=== PATIENT | male | born 1990 | race Caucasian/White ===

== ENCOUNTER 2017-10-21 14:22 | Emergency (ER) | payer SELFPAY ==
[~2017-10-21] VITALS: Ht 182.9 cm; Wt 100.0 kg
[2017-10-21 14:47] VITALS: BP 139/90; PULSE 118; RESP 20; TEMP 98; O2SAT 99
[2017-10-21 16:32] LABS: AUTOMATED NEUTROPHIL # 8.2 TH/MM3 (1.8-7.7); BASOPHIL % 0.2 % (0.0-2.0); EOSINOPHIL % 0.1 % (0.0-4.0); HEMATOCRIT 44.8 % (39.0-51.0); LYMPH % 13.2 % (9.0-44.0); LYMPHOCYTE # 1.4 TH/MM3 (1.0-4.8); MEAN CELL VOLUME 96.8 FL (80.0-100.0); MEAN CORPUSCULAR HEMOGLOBIN 34.5 PG (27.0-34.0); MEAN CORPUSCULAR HGB CONC 35.6 % (32.0-36.0); MEAN PLATELET VOLUME 6.9 FL (7.0-11.0); MONO % 9.2 % (0.0-8.0); NEUT % 77.3 % (16.0-70.0); PLATELET COUNT 351 TH/MM3 (150-450); RED BLOOD COUNT 4.63 MIL/MM3 (4.50-5.90); RED CELL DISTRIBUTION WIDTH 12.9 % (11.6-17.2); WHITE BLOOD COUNT 10.6 TH/MM3 (4.0-11.0)
--- NOTE | 2017-10-21 16:43 | PD ---
Data Data Last Documented VS Vital Signs Date Time Temp Pulse Resp B/P (MAP) Pulse Ox O2 Delivery O2 Flow Rate FiO2 10/21/17 14:47 98.0 118 20 139/90 (106) 99 Orders Orders Complete Blood Count With Diff (10/21/17 14:47) Comprehensive Metabolic Panel (10/21/17 14:47) Thyroid Stimulating Hormone (10/21/17 14:47) Psych Screen (10/21/17 14:47) Drug Screen, Random Urine (10/21/17 14:47) Alcohol (Ethanol) (10/21/17 14:47) Salicylates (Aspirin) (10/21/17 14:47) Tylenol (Acetaminophen) (10/21/17 14:47) Labs Laboratory Tests Test 10/21/17 15:50 10/21/17 15:58 White Blood Count 10.6 TH/MM3 Red Blood Count 4.63 MIL/MM3 Hemoglobin 16.0 GM/DL Hematocrit 44.8 % Mean Corpuscular Volume 96.8 FL Mean Corpuscular Hemoglobin 34.5 PG Mean Corpuscular Hemoglobin Concent 35.6 % Red Cell Distribution Width 12.9 % Platelet Count 351 TH/MM3 Mean Platelet Volume 6.9 FL Neutrophils (%) (Auto) 77.3 % Lymphocytes (%) (Auto) 13.2 % Monocytes (%) (Auto) 9.2 % Eosinophils (%) (Auto) 0.1 % Basophils (%) (Auto) 0.2 % Neutrophils # (Auto) 8.2 TH/MM3 Lymphocytes # (Auto) 1.4 TH/MM3 Monocytes # (Auto) 1.0 TH/MM3 Eosinophils # (Auto) 0.0 TH/MM3 Basophils # (Auto) 0.0 TH/MM3 CBC Comment DIFF FINAL Differential Comment MDM Supervised Visit with CARLOS: Yes Narrative Course I, Dr. Lewis, have reviewed the advance practice practitioner's documentation and am in agreement, met with the patient face to face, made the diagnosis, and the medical decision making was done by me. *My assessment and Findings: This patient presents under police Mendoza act. He was found walking down the street completely nude. He has anabaptist preoccupation. A medical screening workup has been ordered. He has normal vital signs. He denies any physical complaint. Disposition will be per psychiatry. Diagnosis Primary Impression: Psychosis Qualified Codes: F29 - Unspecified psychosis not due to a substance or known physiological condition Ubaldo Lewis MD Oct 21, 2017 16:43
[2017-10-21 17:00] VITALS: PULSE 104; RESP 16; O2SAT 99
[2017-10-21 17:16] LABS: ACETAMINOPHEN LESS THAN 2.0 MCG/ML (10.0-30.0); ALBUMIN 4.4 GM/DL (3.4-5.0); ALKALINE PHOSPHATASE 50 U/L (45-117); ALT (GPT) 29 U/L (12-78); AST (GOT) 34 U/L (15-37); BLOOD UREA NITROGEN 10 MG/DL (7-18); CALCIUM 9.4 MG/DL (8.5-10.1); CHLORIDE 108 MEQ/L (98-107); CREATININE 0.87 MG/DL (0.60-1.30); GLOMERULAR FILTRATION RATE 105 ML/MIN (>89); GLUCOSE,RANDOM 81 MG/DL (74-106); SODIUM (NA) 142 MEQ/L (136-145); TOTAL BILIRUBIN ADULT 0.5 MG/DL (0.2-1.0); TOTAL PROTEIN 7.8 GM/DL (6.4-8.2)
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
[2017-10-21 19:27] VITALS: BP 127/75; PULSE 89; RESP 18; O2SAT 99
[2017-10-22 02:39] VITALS: BP 112/56; PULSE 57; RESP 18; O2SAT 97
[2017-10-22 08:00] VITALS: BP 115/61; PULSE 62; RESP 17; TEMP 98.5; O2SAT 98
[2017-10-22 12:00] VITALS: BP 113/64; PULSE 66; RESP 15; TEMP 98.1; O2SAT 99
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
--- NOTE | 2017-10-22 16:07 | PD ---
Physical Exam Time Seen by Provider: 15:56 ANN Guthrie has evaluated the patient, his lifted the Mendoza act and cleared the patient for discharge. Data Data Last Documented VS Vital Signs Date Time Temp Pulse Resp B/P (MAP) Pulse Ox O2 Delivery O2 Flow Rate FiO2 10/22/17 12:00 98.1 66 15 113/64 (80) 99 Room Air Orders Orders Complete Blood Count With Diff (10/21/17 14:47) Comprehensive Metabolic Panel (10/21/17 14:47) Thyroid Stimulating Hormone (10/21/17 14:47) Psych Screen (10/21/17 14:47) Drug Screen, Random Urine (10/21/17 14:47) Alcohol (Ethanol) (10/21/17 14:47) Salicylates (Aspirin) (10/21/17 14:47) Tylenol (Acetaminophen) (10/21/17 14:47) Diet Regular Basic (10/22/17 Breakfast) Labs Laboratory Tests Test 10/21/17 15:50 10/21/17 15:58 White Blood Count 10.6 TH/MM3 Red Blood Count 4.63 MIL/MM3 Hemoglobin 16.0 GM/DL Hematocrit 44.8 % Mean Corpuscular Volume 96.8 FL Mean Corpuscular Hemoglobin 34.5 PG Mean Corpuscular Hemoglobin Concent 35.6 % Red Cell Distribution Width 12.9 % Platelet Count 351 TH/MM3 Mean Platelet Volume 6.9 FL Neutrophils (%) (Auto) 77.3 % Lymphocytes (%) (Auto) 13.2 % Monocytes (%) (Auto) 9.2 % Eosinophils (%) (Auto) 0.1 % Basophils (%) (Auto) 0.2 % Neutrophils # (Auto) 8.2 TH/MM3 Lymphocytes # (Auto) 1.4 TH/MM3 Monocytes # (Auto) 1.0 TH/MM3 Eosinophils # (Auto) 0.0 TH/MM3 Basophils # (Auto) 0.0 TH/MM3 CBC Comment DIFF FINAL Differential Comment Blood Urea Nitrogen 10 MG/DL Creatinine 0.87 MG/DL Random Glucose 81 MG/DL Total Protein 7.8 GM/DL Albumin 4.4 GM/DL Calcium Level 9.4 MG/DL Alkaline Phosphatase 50 U/L Aspartate Amino Transf (AST/SGOT) 34 U/L Alanine Aminotransferase (ALT/SGPT) 29 U/L Total Bilirubin 0.5 MG/DL Sodium Level 142 MEQ/L Potassium Level 3.4 MEQ/L Chloride Level 108 MEQ/L Carbon Dioxide Level 22.0 MEQ/L Anion Gap 12 MEQ/L Estimat Glomerular Filtration Rate 105 ML/MIN Thyroid Stimulating Hormone 3rd Gen 0.669 uIU/ML Salicylates Level LESS THAN 1.7 MG/DL Acetaminophen Level LESS THAN 2.0 MCG/ML Ethyl Alcohol Level LESS THAN 3 MG/DL Urine Opiates Screen NEG Urine Barbiturates Screen NEG Urine Amphetamines Screen NEG Urine Benzodiazepines Screen NEG Urine Cocaine Screen NEG Urine Cannabinoids Screen POS MDM Supervised Visit with CARLOS: No Narrative Course ANN Leos has evaluated the patient, his lifted the Mendoza act and cleared the patient for discharge. Patient contracts safety. Denies suicidal or homicidal ideations. Patient will be provided community resource packet to [facility]/ [facility] for follow-up. Has friends and family for support. Patient was medically cleared by alternate provider prior to psych screening. Patient has been evaluated by psychiatry and and is now cleared for discharge. Diagnosis Primary Impression: Psychosis Qualified Codes: F29 - Unspecified psychosis not due to a substance or known physiological condition Referrals: [facility] (Out patient) [facility] Primary Care Physician Psychiatrist [facility] Patient Instructions: General Instructions, Schizophrenia (ED) Additional Instruction: Contract safety to your self and others Follow-up with psychiatry Follow-up with primary care provider Follow-up with Fidenico Espinoza Return to the emergency department immediately with worsening of symptoms Med/Other Pt SpecificInfo: No Change to Meds, No Meds Exist/No RX given Disposition: 01 DISCHARGE HOME Condition: Stable Kenzie Murphy Oct 22, 2017 16:07
[2017-10-22 16:12] VITALS: BP 115/67
== END 2017-10-22 16:12 | disposition home or self-care (01) ==
LOC: NEPD 14:22
DX: F29 Unspecified psychosis not due to a substance or known physiological condition (principal); F12.10 Cannabis abuse, uncomplicated; F20.9 Schizophrenia, unspecified; F17.210 Nicotine dependence, cigarettes, uncomplicated; Z91.14 Patient's other noncompliance with medication regimen
CPT/HCPCS: 80053; 80307; 84443; 85025; 99284

== ENCOUNTER 2017-11-21 19:02 | Inpatient (IN) | payer OTHER ==
[~2017-11-21] VITALS: Ht 177.8 cm; Wt 112.2 kg
[2017-11-21 19:30] VITALS: BP 126/62; PULSE 134; RESP 16; TEMP 98.4; O2SAT 93
[2017-11-21] MEDS ORDERED: TRAZ100T10 PO (19:34)
[2017-11-21] MEDS ORDERED: ARIP2 PO (19:34)
[2017-11-21] MEDS ORDERED: SODIUM CHLOR 0.9% 1000 ML INJ 1,000 ML IV ONE (19:45)
[2017-11-21] MEDS ORDERED: DIPHTH/TETANUS/ACEL PERTUSSIS (BOOSTER) 0.5 ML VIAL/PFS IM ONE (19:45)
--- NOTE | 2017-11-21 19:56 | PD ---
HPI Chief Complaint: Psychiatric Symptoms Time Seen by Provider: 19:16 Travel History International Travel<30 days: No Contact w/Intl Traveler<30days: No Traveled to known affect area: No History of Present Illness HPI 27-year-old male that presents to the ED for evaluation of Mendoza act. Patient was Mendoza acted by police after apparently he was found to be naked and stating that the gravity of the ER was pulling him to the ground. Patient has abrasions to his feet and knees bilaterally. Patient has an abrasion to his abdomen. He denies any his head or losing consciousness. Denies any drugs or alcohol. He allegedly has a significant history of psychiatric issues including schizophrenia. Patient has been here once before. Unclear patient takes any medications. Patient himself is a poor historian appears to be slightly psychotic and delusional. He denies any suicidal homicidal ideation. He cannot tell me when his last tetanus booster was. He states having pain to his legs and knees. No other medical issues at this time. History is limited because of the patient's psychiatric illness. No other medical issues at this time. PFSH Past Medical History Hx Anticoagulant Therapy: No Cardiovascular Problems: Yes (TACHYCARDIA) Chemotherapy: No Cerebrovascular Accident: No Diabetes: No Respiratory: No Schizophrenia: Yes Tetanus Vaccination: Unknown Social History Alcohol Use: No Tobacco Use: No Substance Use: Yes (MARIJUANA. DENIES CURRENT USE) Allergies-Medications (Allergen,Severity, Reaction): Coded Allergies: alprazolam (Verified Allergy, Unknown, 11/21/17) diphenhydramine (Verified Allergy, Unknown, 11/21/17) Reported Meds & Prescriptions Reported Meds & Active Scripts Active Reported Trazodone (Trazodone HCl) 100 Mg Tablet 100 Mg PO HS Abilify (Aripiprazole) 2 Mg Tab 5 Mg PO DAILY Review of Systems ROS Limitations: Psychotic Except as stated in HPI: all other systems reviewed are Neg Physical Exam Exam Limitations: Psychotic Narrative GENERAL: SKIN: Warm and dry. HEAD: Atraumatic. Normocephalic. EYES: Pupils equal and round. No scleral icterus. No injection or drainage. ENT: No nasal bleeding or discharge. Mucous membranes pink and moist. Tongue is midline. No uvula deviation. NECK: Trachea midline. No JVD. CARDIOVASCULAR: Regular rate and rhythm. No murmurs, S3, S4. RESPIRATORY: No accessory muscle use. Clear to auscultation. Breath sounds equal bilaterally. GASTROINTESTINAL: Abdomen soft, non-tender, nondistended. Hepatic and splenic margins not palpable. MUSCULOSKELETAL: Extremities without clubbing, cyanosis, or edema. No obvious deformities. Full range of motion of the upper and lower extremities bilaterally. 2+ pulses bilaterally. Patient has multiple abrasions to the dorsal aspect of the feet bilaterally as well as the knees bilaterally as well as the right abdomen. Sensation intact bilaterally. No lumbar, thoracic, cervical spine tenderness to palpation. NEUROLOGICAL: Awake and alert. No obvious cranial nerve deficits. Motor grossly within normal limits. Five out of 5 muscle strength in the arms and legs. Normal speech. PSYCHIATRIC: A psychotic mood and affect; insight and judgment minimal Data Data Last Documented VS Vital Signs Date Time Temp Pulse Resp B/P (MAP) Pulse Ox O2 Delivery O2 Flow Rate FiO2 11/21/17 19:30 98.4 134 16 126/62 (83) 93 Orders Orders Complete Blood Count With Diff (11/21/17 19:14) Comprehensive Metabolic Panel (11/21/17 19:14) Thyroid Stimulating Hormone (11/21/17 19:14) Psych Screen (11/21/17 19:14) Drug Screen, Random Urine (11/21/17 19:14) Alcohol (Ethanol) (11/21/17 19:14) Salicylates (Aspirin) (11/21/17 19:14) Tylenol (Acetaminophen) (11/21/17 19:14) Sodium Chlor 0.9% 1000 Ml Inj (Ns 1000 M (11/21/17 19:45) [id number] (Booster) Inj (Boostrix (11/21/17 19:45) Wound Care (11/21/17 19:33) MDM Medical Decision Making Medical Screen Exam Complete: Yes Emergency Medical Condition: Yes Medical Record Reviewed: Yes Differential Diagnosis Depression versus suicidal ideation versus anxiety versus adjustment disorder versus mood disorder versus bipolar disorder versus schizophrenia versus paranoid disorder versus psychosis versus substance abuse versus alcohol abuse versus alcohol induced psychosis versus homicidality addition versus cutting versus personality disorder Narrative Course 27-year-old male that presents to the ED for evaluation of psych. Patient was properly examined and was found to have signs and symptoms consistent appears to be psychiatric in nature. No significant medical distress. Labs were drawn. Patient was medically clear. Wound care was endorsed. Patient was given tetanus booster. Patient was found to be slightly tachycardic in the 140s 120s. This appears to be likely from the hydration as patient does appear to be dry states that he has not eaten or drinking anything today likely from his psychosis. He will given IV fluids and if his heart rate improves patient can be moved to psychiatric bed. Mental health screening was discussed with the patient. Diagnosis Primary Impression: Psychosis Qualified Codes: F23 - Brief psychotic disorder Additional Impression: Multiple abrasions Sanjay Franco November 21, 2017 19:56
[2017-11-21 20:18] LABS: AUTOMATED NEUTROPHIL # 12.6 TH/MM3 (1.8-7.7); BASOPHIL % 0.2 % (0.0-2.0); HEMATOCRIT 44.4 % (39.0-51.0); HEMOGLOBIN 15.7 GM/DL (13.0-17.0); LYMPH % 4.7 % (9.0-44.0); LYMPHOCYTE # 0.7 TH/MM3 (1.0-4.8); MEAN CELL VOLUME 96.4 FL (80.0-100.0); MEAN CORPUSCULAR HGB CONC 35.3 % (32.0-36.0); MEAN PLATELET VOLUME 7.2 FL (7.0-11.0); MONO % 6.3 % (0.0-8.0); MONOCYTE # 0.9 TH/MM3 (0-0.9); NEUT % 88.8 % (16.0-70.0); PLATELET COUNT 404 TH/MM3 (150-450); WHITE BLOOD COUNT 14.2 TH/MM3 (4.0-11.0)
[2017-11-21 20:36] LABS: ALBUMIN 4.4 GM/DL (3.4-5.0); ALT (GPT) 27 U/L (12-78); AST (GOT) 17 U/L (15-37); BLOOD UREA NITROGEN 7 MG/DL (7-18); CHLORIDE 113 MEQ/L (98-107); CREATININE 1.24 MG/DL (0.60-1.30); GLOMERULAR FILTRATION RATE 69 ML/MIN (>89); GLUCOSE,RANDOM 95 MG/DL (74-106); SODIUM (NA) 146 MEQ/L (136-145)
[2017-11-21 20:45] LABS: ALKALINE PHOSPHATASE 51 U/L (45-117); TOTAL BILIRUBIN ADULT 0.6 MG/DL (0.2-1.0); TOTAL PROTEIN 7.7 GM/DL (6.4-8.2)
[2017-11-21 20:46] LABS: ACETAMINOPHEN LESS THAN 2.0 MCG/ML (10.0-30.0)
[2017-11-21 22:22] VITALS: BP 130/72; PULSE 90; RESP 18
[2017-11-21 23:20] VITALS: BP 112/64; PULSE 94; RESP 16; TEMP 97.9; O2SAT 97
[2017-11-21] MEDS ORDERED: MAGNESIUM HYDROXIDE SUSP 30 ML CUP PO PRN (23:45)
[2017-11-21] MEDS ORDERED: ALUMINUM/MAGNESIUM/SIMETH 30 ML CUP PO PRN (23:45)
[2017-11-22] MEDS: ACETAMINOPHEN 325 MG TAB PO PRN ×2 (02:30→20:39)
[2017-11-22 06:17] VITALS: BP 121/64; PULSE 85; RESP 18; TEMP 98.1; O2SAT 98
[2017-11-22 10:59] LABS: BICARBONATE 26.1 MEQ/L (21.0-32.0); BLOOD UREA NITROGEN 7 MG/DL (7-18); CALCIUM 9.3 MG/DL (8.5-10.1); CHLORIDE 110 MEQ/L (98-107); CREATININE 0.96 MG/DL (0.60-1.30); GLOMERULAR FILTRATION RATE 93 ML/MIN (>89); GLUCOSE,RANDOM 103 MG/DL (74-106); SODIUM (NA) 144 MEQ/L (136-145)
[2017-11-22] MEDS ORDERED: diphenhydrAMINE HCL 50 MG CAP PO PRN (11:00)
[2017-11-22] MEDS ORDERED: ARIPiprazole 5 MG TAB PO SCH (11:00)
[2017-11-22 11:05] LABS: CHOLESTEROL 130 MG/DL (120-200); CHOLESTEROL/ HDL RATIO 3.65 RATIO; HDL CHOLESTEROL 35.6 MG/DL (40.0-60.0); LDL CHOLESTEROL 78 MG/DL (0-99); TRIGLYCERIDES 81 MG/DL (42-150)
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
[2017-11-22] MEDS ORDERED: TRAZ100T10 PO (11:45)
[2017-11-22] MEDS ORDERED: ARIP1TAB11 PO (11:45)
[2017-11-22 18:03] VITALS: BP 127/56; PULSE 81; RESP 17; TEMP 98.3; O2SAT 96
[2017-11-22] MEDS: ARIPiprazole 10 MG TAB PO SCH (20:38)
[2017-11-22] MEDS: traZODone HCL 100 MG TAB PO SCH (20:38)
[2017-11-22] MEDS: hydrOXYzine HCL 50 MG TAB PO PRN (23:12)
[2017-11-23] MEDS: ACETAMINOPHEN 325 MG TAB PO PRN ×3 (03:30→22:40)
[2017-11-23 05:45] VITALS: BP 135/79; PULSE 86; RESP 18; TEMP 98.6; O2SAT 97
[2017-11-23] MEDS: ARIPiprazole 10 MG TAB PO SCH ×2 (09:00→21:26)
[2017-11-23] MEDS: hydrOXYzine HCL 50 MG TAB PO PRN ×2 (10:45→20:41)
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
--- NOTE | 2017-11-23 13:26 | HHI.PYPN ---
Subjective Remarks Patient seen and hold snf, chart reviewed, patient complaint medications, patient discussed with nurse. Patient was noted to be doing some pushing with the Bible in the day room took redirection without problems. Acknowledges continued auditory hallucinations was somewhat command threatening nature. As if there were thought insertion. Patient compliant with medications. Denies suicidality at the present time. For now continue treatment Review of Systems Except as stated in HPI: all other systems reviewed are Neg Mental Status Examination Appearance: Appropriate Consciousness: Alert Orientation: x4 Motor Activity: Normal gait Speech: Unremarkable, Pressured (Slightly), Rapid (Slightly) Language: Adequate Fund of Knowledge: Adequate Attention and Concentration: Adequate Memory: Unremarkable Mood: Other (Euthymic to mildly dysphoric) Affect: Other (Slight increased range and intensity) Thought Process & Associations: Loose associations (Mildly), Disorganized ( Mildly) Thought Content: Hallucinations, Other (Paranoid) Hallucination Type: Auditory Delusion Type: Paranoid Suicidal Ideation: No Suicidal Plan: No Suicidal Intention: No Homicidal Ideation: No Homicidal Plan: No Homicidal Intention: No Insight: Poor Judgment: Poor Results Vitals/IOs Vital Signs Date Time Temp Pulse Resp B/P (MAP) Pulse Ox O2 Delivery O2 Flow Rate FiO2 11/23/17 05:45 98.6 86 18 135/79 (97) 97 Assessment & Plan Problem List: (1) History of multiple drug abuse (2) Marijuana abuse ICD Codes: F12.10 - Cannabis abuse, uncomplicated (3) Paranoid type schizophrenia, chronic state ICD Codes: F20.0 - Paranoid schizophrenia Assessment & Plan Estimated LOS: days patient continues psychotic with auditory hallucinations of a command nature, but continues somewhat vigilance, for now continue treatment Justification for Cont. Inpt. At this time patient would decompensate place to the lower level of care Discharge Planning Probable return home with family perhaps sober living facility Request HC Surrog/Guard Advoc?: No Sukhjinder Stern MD November 23, 2017 13:26
[2017-11-23 16:47] VITALS: BP 134/78; PULSE 81; RESP 18; TEMP 98.2; O2SAT 99
[2017-11-23] MEDS: traZODone HCL 100 MG TAB PO SCH (21:26)
[2017-11-24] MEDS: hydrOXYzine HCL 50 MG TAB PO PRN (03:15)
[2017-11-24 05:48] VITALS: BP 116/65; PULSE 91; RESP 18; TEMP 98.1; O2SAT 98
--- NOTE | 2017-11-24 08:03 | HHI.PYPN ---
Subjective Remarks Patient is seen in follow-up nurse Janel, chart review, patient complaint medications, patient discussed with nurse. When asked about abrasions on the dorsum of both feet patient stated that there were people or spirits were doing bad things to him causing these abrasions that because he believes in Brennan that it will be-year-old. Patient otherwise has no behavioral problems, compliant medications. We will increase Abilify to 15 mg twice daily Review of Systems Except as stated in HPI: all other systems reviewed are Neg Mental Status Examination Appearance: Appropriate Consciousness: Alert Orientation: x4 Motor Activity: Normal gait Speech: Unremarkable, Pressured (Slightly), Rapid (Slightly) Language: Adequate Fund of Knowledge: Adequate Attention and Concentration: Adequate Memory: Unremarkable Mood: Other (Euthymic to mildly dysphoric) Affect: Other (Slight increased range and intensity) Thought Process & Associations: Loose associations (Mildly), Disorganized ( Mildly) Thought Content: Hallucinations, Other (Paranoid) Hallucination Type: Auditory Delusion Type: Paranoid Suicidal Ideation: No Suicidal Plan: No Suicidal Intention: No Homicidal Ideation: No Homicidal Plan: No Homicidal Intention: No Insight: Poor Judgment: Poor Results Vitals/IOs Vital Signs Date Time Temp Pulse Resp B/P (MAP) Pulse Ox O2 Delivery O2 Flow Rate FiO2 11/24/17 05:48 98.1 91 18 116/65 (82) 98 Assessment & Plan Problem List: (1) History of multiple drug abuse (2) Marijuana abuse ICD Codes: F12.10 - Cannabis abuse, uncomplicated (3) Paranoid type schizophrenia, chronic state ICD Codes: F20.0 - Paranoid schizophrenia Assessment & Plan Estimated LOS: days patient continues psychotic and delusional, she medication adjustment above Justification for Cont. Inpt. At the present time the patient would decompensate a place to a lower level of care Discharge Planning Probable return home Request HC Surrog/Guard Advoc?: No Sukhjinder Stern MD November 24, 2017 08:03
[2017-11-24] MEDS: ARIPiprazole 15 MG TAB PO SCH ×2 (08:55→21:03)
[2017-11-24] MEDS: ACETAMINOPHEN 325 MG TAB PO PRN ×3 (10:31→19:31)
[2017-11-24] MEDS: BACITRACIN TOP OINT 15 GM TUBE TOPICAL SCH ×2 (10:31→21:04)
[2017-11-24 16:35] VITALS: BP 133/76; PULSE 84; RESP 16; TEMP 97.8; O2SAT 99
[2017-11-24] MEDS: traZODone HCL 100 MG TAB PO SCH (21:00)
[2017-11-25] MEDS: hydrOXYzine HCL 50 MG TAB PO PRN (03:42)
[2017-11-25 06:10] VITALS: BP 128/73; PULSE 99; RESP 18; TEMP 98.6; O2SAT 99
[2017-11-25] MEDS: ARIPiprazole 15 MG TAB PO SCH ×2 (08:35→21:15)
[2017-11-25] MEDS: BACITRACIN TOP OINT 15 GM TUBE TOPICAL SCH ×2 (09:00→21:16)
[2017-11-25 09:38] LABS: ALBUMIN 4.3 GM/DL (3.4-5.0); AST (GOT) 26 U/L (15-37); BICARBONATE 24.4 MEQ/L (21.0-32.0); BLOOD UREA NITROGEN 8 MG/DL (7-18); CALCIUM 9.7 MG/DL (8.5-10.1); CHLORIDE 105 MEQ/L (98-107); CREATININE 0.82 MG/DL (0.60-1.30); GLOMERULAR FILTRATION RATE 112 ML/MIN (>89); GLUCOSE,RANDOM 100 MG/DL (74-106); SODIUM (NA) 140 MEQ/L (136-145)
[2017-11-25 09:39] LABS: ALT (GPT) 44 U/L (12-78)
[2017-11-25 09:41] LABS: ALKALINE PHOSPHATASE 72 U/L (45-117); TOTAL BILIRUBIN ADULT 0.5 MG/DL (0.2-1.0); TOTAL PROTEIN 8.2 GM/DL (6.4-8.2)
--- NOTE | 2017-11-25 11:25 | HHI.PYPN ---
Subjective Remarks Patient was seen and case discussed with nursing. Patient remains psychotic. He says that someone else's thoughts are in his head but does not describe these as auditory hallucinations. Denies they are command in nature. Continues to believe that he is involved Satanists. Compliant with medications and behaving well on the unit. Mental Status Examination Appearance: Appropriate Consciousness: Alert Orientation: x4 Motor Activity: Normal gait Speech: Unremarkable, Pressured (Slightly), Rapid (Slightly) Language: Adequate Fund of Knowledge: Adequate Attention and Concentration: Adequate Memory: Unremarkable Mood: Other (Euthymic to mildly dysphoric) Affect: Other (Slight increased range and intensity) Thought Process & Associations: Circumstantial Thought Content: Hallucinations, Other (Paranoid) Hallucination Type: Auditory (His own thoughts) Delusion Type: Paranoid (Satanists) Suicidal Ideation: No Suicidal Plan: No Suicidal Intention: No Homicidal Ideation: No Homicidal Plan: No Homicidal Intention: No Insight: Poor Judgment: Poor Results Labs Test 11/25/17 08:20 Blood Urea Nitrogen 8 MG/DL Creatinine 0.82 MG/DL Random Glucose 100 MG/DL Total Protein 8.2 GM/DL Albumin 4.3 GM/DL Calcium Level 9.7 MG/DL Alkaline Phosphatase 72 U/L Aspartate Amino Transf (AST/SGOT) 26 U/L Alanine Aminotransferase (ALT/SGPT) 44 U/L Total Bilirubin 0.5 MG/DL Sodium Level 140 MEQ/L Potassium Level 3.8 MEQ/L Chloride Level 105 MEQ/L Carbon Dioxide Level 24.4 MEQ/L Anion Gap 11 MEQ/L Estimat Glomerular Filtration Rate 112 ML/MIN Vitals/IOs Vital Signs Date Time Temp Pulse Resp B/P (MAP) Pulse Ox O2 Delivery O2 Flow Rate FiO2 11/25/17 06:10 98.6 99 18 128/73 (91) 99 Assessment & Plan Problem List: (1) Paranoid type schizophrenia, chronic state ICD Codes: F20.0 - Paranoid schizophrenia (2) History of multiple drug abuse (3) Marijuana abuse ICD Codes: F12.10 - Cannabis abuse, uncomplicated Assessment & Plan Continue current treatment plan Justification for Cont. Inpt. Patient would decompensate in a less restrictive setting Request HC Surrog/Guard Advoc?: No Jorge Lemus DO November 25, 2017 11:25
[2017-11-25 16:53] VITALS: BP 133/76; PULSE 101; RESP 18; TEMP 97.8; O2SAT 99
[2017-11-25] MEDS: traZODone HCL 100 MG TAB PO SCH (21:15)
[2017-11-26 06:07] VITALS: BP 134/74; PULSE 82; RESP 16; TEMP 97.5; O2SAT 98
[2017-11-26] MEDS: BACITRACIN TOP OINT 15 GM TUBE TOPICAL SCH ×2 (08:59→21:17)
[2017-11-26] MEDS: ARIPiprazole 15 MG TAB PO SCH ×2 (08:59→21:15)
--- NOTE | 2017-11-26 11:25 | HHI.PYPN ---
Subjective Remarks Patient was seen and case discussed with nursing. Sleep has improved with trazodone and is now between 6-8 hours. However, patient says he still tired and is trying to catch up on his sleep during the day. He was laying on the floor when we walked into the interview. Today he denies auditory hallucinations. No bizarre behavior noted. Compliant with medications. Behaving well on the unit. Does not mention any satanists today Mental Status Examination Appearance: Appropriate Consciousness: Alert Orientation: x4 Motor Activity: Normal gait Speech: Unremarkable, Pressured (Slightly), Rapid (Slightly) Language: Adequate Fund of Knowledge: Adequate Attention and Concentration: Adequate Memory: Unremarkable Mood: Other (Euthymic to mildly dysphoric) Affect: Other (Slight increased range and intensity) Thought Process & Associations: Circumstantial Hallucination Type: None Delusion Type: None Suicidal Ideation: No Suicidal Plan: No Suicidal Intention: No Homicidal Ideation: No Homicidal Plan: No Homicidal Intention: No Insight: Poor Judgment: Poor Results Vitals/IOs Vital Signs Date Time Temp Pulse Resp B/P (MAP) Pulse Ox O2 Delivery O2 Flow Rate FiO2 11/26/17 06:07 97.5 82 16 134/74 (94) 98 Assessment & Plan Problem List: (1) Paranoid type schizophrenia, chronic state ICD Codes: F20.0 - Paranoid schizophrenia (2) History of multiple drug abuse (3) Marijuana abuse ICD Codes: F12.10 - Cannabis abuse, uncomplicated Assessment & Plan Continue current treatment plan Justification for Cont. Inpt. Patient would decompensate in a less restrictive setting Request HC Surrog/Guard Advoc?: No Jorge Lemus DO November 26, 2017 11:25
[2017-11-26] MEDS: hydrOXYzine HCL 50 MG TAB PO PRN ×2 (12:43→12:53)
[2017-11-26 17:42] VITALS: BP 151/78; PULSE 98; RESP 18; TEMP 98; O2SAT 97
[2017-11-26] MEDS: traZODone HCL 100 MG TAB PO SCH (21:15)
[2017-11-27 06:24] VITALS: BP 118/69; PULSE 67; RESP 17; TEMP 97.6; O2SAT 98
[2017-11-27] MEDS: BACITRACIN TOP OINT 15 GM TUBE TOPICAL SCH ×2 (08:22→20:49)
[2017-11-27] MEDS: ARIPiprazole 15 MG TAB PO SCH ×2 (08:22→20:48)
[2017-11-27] MEDS: ZIPRASIDONE HCL 20 MG CAP PO STA ×2 (15:32→17:17)
--- NOTE | 2017-11-27 15:32 | HHI.PYPN ---
Subjective Remarks Patient seen in his room with nurse Janel and counselor Catrachita, patient is somewhat agitated and irritable grandiose and delusional focusing somewhat on distrust of his family of origin. While he is not quite identifying them as impostors he does question their identity and the motivation for relating to him. We did discuss medications, patient feels the Abilify is not helping him with these feelings. He has tried Seroquel Resporal the Abilify in the past. He is willing to try an alternative medication. We will start him on Geodon 20 mg twice daily giving him 1 dose now and later this afternoon, we will consolidate the Abilify to 15 mg at bedtime and is really transitioning the medication. Patient continues somewhat vague about auditory hallucinations he is willing to work with these medication adjustments Review of Systems Except as stated in HPI: all other systems reviewed are Neg Mental Status Examination Appearance: Appropriate Consciousness: Alert Orientation: x4 Motor Activity: Normal gait Speech: Unremarkable, Pressured (Slightly), Rapid (Slightly) Language: Adequate Fund of Knowledge: Adequate Attention and Concentration: Adequate Memory: Unremarkable Mood: Other (Euthymic to mildly dysphoric) Affect: Other (Slight increased range and intensity) Thought Process & Associations: Circumstantial Hallucination Type: None Delusion Type: None Suicidal Ideation: No Suicidal Plan: No Suicidal Intention: No Homicidal Ideation: No Homicidal Plan: No Homicidal Intention: No Insight: Poor Judgment: Poor Results Vitals/IOs Vital Signs Date Time Temp Pulse Resp B/P (MAP) Pulse Ox O2 Delivery O2 Flow Rate FiO2 11/27/17 06:24 97.6 67 17 118/69 (85) 98 Assessment & Plan Problem List: (1) Paranoid type schizophrenia, chronic state ICD Codes: F20.0 - Paranoid schizophrenia (2) History of multiple drug abuse (3) Marijuana abuse ICD Codes: F12.10 - Cannabis abuse, uncomplicated Assessment & Plan Estimated LOS: days patient continues psychotic and delusional, with some increased affect and irritability related to this. She medication adjustments above Justification for Cont. Inpt. At this time patient would decompensate a place to the lower level of care Discharge Planning Possible return home with family Request HC Surrog/Guard Advoc?: No Sukhjinder Stern MD November 27, 2017 15:32
--- NOTE | 2017-11-27 15:55 | PD.TTN ---
Patient Problems 1. Discharge planning 2. Medication compliance 3. Knowledge deficit 4. Lack of coping skills Progress Toward Goals Provider Present: Dr. Marko Stern Provider Input: 11/27/17 remains psychotic Nurse(s) Input: Elke: med compliant, uncooperative, not participating in groups , superficially cooperativeand suspicious Psychiatric Counselors Present: Catrachita Cheung LCSW Psych Therapist Input: 11/27/17 remains with ruminating thoughts , unstable, watchful and anxious and pacing Group Spec/RT/OT/RAMIREZ Present: Dipak Saez OT Group Spec/RT/OT/RAMIREZ Input: 11/27/17 attends some groups Catrachita Cheung LCSW November 27, 2017 15:55
[2017-11-27] MEDS: ZIPRASIDONE HCL 20 MG CAP PO SCH (17:17)
[2017-11-27 17:24] VITALS: BP 125/70; PULSE 71; RESP 16; TEMP 97.6; O2SAT 99
[2017-11-27] MEDS: traZODone HCL 100 MG TAB PO SCH (20:48)
[2017-11-28 05:50] VITALS: BP 139/60; PULSE 75; RESP 14; TEMP 97.7
[2017-11-28] MEDS: ZIPRASIDONE HCL 20 MG CAP PO SCH ×2 (08:25→16:49)
[2017-11-28] MEDS: BACITRACIN TOP OINT 15 GM TUBE TOPICAL SCH ×2 (08:26→21:00)
--- NOTE | 2017-11-28 09:44 | HHI.PYPN ---
Subjective Remarks Patient seen in the [facility] with nurse Islas, chart reviewed, patient compliant medication. Patient discussed with nurse. Patient tolerating initial doses of Geodon without difficulty. Says he feels somewhat better. Though this may just be a honeymoon-type effects. He denies any voices at the present time. He has not been focused on spirituality type ideas as the past 1-2 days. For now continue treatment no change Review of Systems Except as stated in HPI: all other systems reviewed are Neg Mental Status Examination Appearance: Appropriate Consciousness: Alert Orientation: x4 Motor Activity: Normal gait Speech: Unremarkable, Pressured (Slightly), Rapid (Slightly) Language: Adequate Fund of Knowledge: Adequate Attention and Concentration: Adequate Memory: Unremarkable Mood: Other (Euthymic to mildly dysphoric) Affect: Other (Slight increased range and intensity) Thought Process & Associations: Circumstantial Hallucination Type: None Delusion Type: None Suicidal Ideation: No Suicidal Plan: No Suicidal Intention: No Homicidal Ideation: No Homicidal Plan: No Homicidal Intention: No Insight: Poor Judgment: Poor Results Vitals/IOs Vital Signs Date Time Temp Pulse Resp B/P (MAP) Pulse Ox O2 Delivery O2 Flow Rate FiO2 11/28/17 05:50 97.7 75 14 139/60 (86) 11/27/17 17:24 99 Assessment & Plan Problem List: (1) Paranoid type schizophrenia, chronic state ICD Codes: F20.0 - Paranoid schizophrenia (2) History of multiple drug abuse (3) Marijuana abuse ICD Codes: F12.10 - Cannabis abuse, uncomplicated Assessment & Plan Estimated LOS: days patient continues psychotic with a somewhat softer, complaint medications, for now continue treatment Justification for Cont. Inpt. At this time patient may decompensate the place to a lower level of care Discharge Planning Possible return home to family Request HC Surrog/Guard Advoc?: No Sukhjinder Stern MD November 28, 2017 09:44
--- NOTE | 2017-11-28 16:29 | PD.WCN.NOT ---
Wound Consult Description: Received wound management consult for coccyx and gluteal cleft areas from Doctor Leena Communicated with: MANOJ Bedoya 2600 unit Recommendation: Please leave scar tissue to gluteal cleft and scab to sacral area open to air. May apply skin barrier film (skin prep) to scar tissue and scab to protect and keep dry BID Additional Information: Patient seen on 2600 unit in patient's room with MANOJ Bedoya. Patient able to stand and lower pants for wound assessment. Patient noted with small lesion to the sacral area with with dry crust covering the top. Lesion measures ~1cm x ~ 0.5cm. Lesion is dry and firm, without surrounding erythema, or induration. No drainage is expressed from lesion. Lesion left open to air. Distal to lesion on sacral area is small area of invaginated scar tissue that presents like a puncture in skin to gluteal cleft measuring ~ 0.5cm x ~0.3cm x ~0.2cm. Scar tissue is dry,no erythema or induration is noted to surrounding skin.Left area open to air. Recommendations noted above. Isabel Grayson CRN November 28, 2017 16:29
[2017-11-28 17:48] VITALS: BP 122/77; PULSE 92; RESP 16; TEMP 98.2; O2SAT 95
[2017-11-28] MEDS: traZODone HCL 100 MG TAB PO SCH (21:30)
[2017-11-28] MEDS: ARIPiprazole 15 MG TAB PO SCH (21:30)
[2017-11-29 06:02] VITALS: BP 104/58; PULSE 87; RESP 19; TEMP 98.2; O2SAT 98
[2017-11-29] MEDS: BACITRACIN TOP OINT 15 GM TUBE TOPICAL SCH ×2 (09:00→20:58)
[2017-11-29] MEDS: ZIPRASIDONE HCL 20 MG CAP PO SCH (09:04)
--- NOTE | 2017-11-29 11:45 | HHI.PYPN ---
Subjective Remarks Patient is seen today in the [facility] with floor staff chart reviewed, patient complaint medications, patient discussed with nurse. Patient calm and cooperative with me now denies voices that at times appears to be responding to internal stimuli. He is still quite guarded and vigilant especially when speaking about other patients on the unit. It appears at times he feels like they may be conspiring against him. Over patient does deny suicidality at this time. At this time if the patient has improved to the point where he may be able to sign voluntary thus I will lift [place] act allow patient to sign voluntary. He is willing to continue stay here getting treatment for his mental illness. We will increase his Geodon to 40 mg twice daily Review of Systems Except as stated in HPI: all other systems reviewed are Neg Mental Status Examination Appearance: Appropriate Consciousness: Alert Orientation: x4 Motor Activity: Normal gait Speech: Unremarkable, Pressured (Slightly), Rapid (Slightly) Language: Adequate Fund of Knowledge: Adequate Attention and Concentration: Adequate Memory: Unremarkable Mood: Other (Euthymic to mildly dysphoric) Affect: Other (Slight increased range and intensity) Thought Process & Associations: Circumstantial Hallucination Type: None Delusion Type: None Suicidal Ideation: No Suicidal Plan: No Suicidal Intention: No Homicidal Ideation: No Homicidal Plan: No Homicidal Intention: No Insight: Poor Judgment: Poor Results Vitals/IOs Vital Signs Date Time Temp Pulse Resp B/P (MAP) Pulse Ox O2 Delivery O2 Flow Rate FiO2 11/29/17 06:02 98.2 87 19 104/58 (73) 98 Assessment & Plan Problem List: (1) Paranoid type schizophrenia, chronic state ICD Codes: F20.0 - Paranoid schizophrenia (2) History of multiple drug abuse (3) Marijuana abuse ICD Codes: F12.10 - Cannabis abuse, uncomplicated Assessment & Plan Estimated LOS: days patient remained psychotic please see medication adjustments above. I feel he does now have the capacity to sign voluntary this on the [place] act allow him to sign voluntary Justification for Cont. Inpt. At this time patient would decompensate a place to a lower level of care Discharge Planning Probable return home to family Request HC Surrog/Guard Advoc?: No Sukhjinder Stern MD November 29, 2017 11:45
--- NOTE | 2017-11-29 12:53 | PD.TTN ---
Patient Problems 1. Discharge planning 2. Medication compliance 3. Knowledge deficit 4. Lack of coping skills Progress Toward Goals Provider Present: Dr. Marko Stern Provider Input: 11/27/17 remains psychotic 11/29/17-med adjustment Nurse(s) Input: Elke: med compliant, uncooperative, not participating in groups , superficially cooperativeand suspicious 12/01/[id number] compliant Psychiatric Counselors Present: Catrachita Cheung LCSW Psych Therapist Input: 11/27/17 remains with ruminating thoughts , unstable, watchful and anxious and pacing 11/29/17- Pt. is talkative, manic, poor insight Group Spec/RT/OT/RAMIREZ Present: Dipak Saez OT Group Spec/RT/OT/RAMIREZ Input: 11/27/17 attends some groups 11/29/17-Pt. attends select groups; requires encoragement to participate. Terry Heller November 29, 2017 12:53
[2017-11-29] MEDS: ZIPRASIDONE HCL 40 MG CAP PO SCH (16:37)
[2017-11-29 16:53] VITALS: BP 142/77; PULSE 68; RESP 17; TEMP 98.2; O2SAT 97
[2017-11-29] MEDS: traZODone HCL 100 MG TAB PO SCH (20:58)
[2017-11-29] MEDS: ARIPiprazole 15 MG TAB PO SCH (20:58)
[2017-11-30 06:15] VITALS: BP 107/67; PULSE 91; RESP 18; TEMP 97.6; O2SAT 98
[2017-11-30] MEDS: ZIPRASIDONE HCL 40 MG CAP PO SCH ×2 (08:30→17:08)
[2017-11-30] MEDS: BACITRACIN TOP OINT 15 GM TUBE TOPICAL SCH ×2 (08:31→21:23)
--- NOTE | 2017-11-30 12:01 | HHI.PYPN ---
Subjective Remarks Patient seen today in his room with nurse Trish, chart reviewed, patient complaint medications, patient discussed with nurse. Patient resting quietly in his bed. Was out socializing for a brief period of time and did eat lunch. He denies suicidality homicidality voices or visions. He is tolerating medication without difficulty. The patient continues to improve showed compliance with medication consider discharge within 24-48 hours Review of Systems Except as stated in HPI: all other systems reviewed are Neg Mental Status Examination Appearance: Appropriate Consciousness: Alert Orientation: x4 Motor Activity: Normal gait Speech: Unremarkable, Pressured (Slightly), Rapid (Slightly) Language: Adequate Fund of Knowledge: Adequate Attention and Concentration: Adequate Memory: Unremarkable Mood: Other (Euthymic to mildly dysphoric) Affect: Other (Slight increased range and intensity) Thought Process & Associations: Circumstantial Hallucination Type: None Delusion Type: None Suicidal Ideation: No Suicidal Plan: No Suicidal Intention: No Homicidal Ideation: No Homicidal Plan: No Homicidal Intention: No Insight: Poor Judgment: Poor Results Vitals/IOs Vital Signs Date Time Temp Pulse Resp B/P (MAP) Pulse Ox O2 Delivery O2 Flow Rate FiO2 11/30/17 06:15 97.6 91 18 107/67 (80) 98 Assessment & Plan Problem List: (1) Paranoid type schizophrenia, chronic state ICD Codes: F20.0 - Paranoid schizophrenia (2) History of multiple drug abuse (3) Marijuana abuse ICD Codes: F12.10 - Cannabis abuse, uncomplicated Assessment & Plan Estimated LOS: days patient compliant medication, denying suicidality homicidality voice or visions, if patient continues to improve consider discharge in 24-48 hours Justification for Cont. Inpt. At this time patient would decompensate a place a lower level of care Request HC Surrog/Guard Advoc?: No Sukhjinder Stern MD November 30, 2017 12:01
[2017-11-30 17:47] VITALS: BP 123/84; PULSE 75; RESP 18; TEMP 97.6; O2SAT 98
[2017-11-30] MEDS: ARIPiprazole 15 MG TAB PO SCH (21:23)
[2017-11-30] MEDS: traZODone HCL 100 MG TAB PO SCH (21:23)
[2017-12-01] MEDS: ZIPRASIDONE HCL 40 MG CAP PO SCH (08:27)
[2017-12-01] MEDS: BACITRACIN TOP OINT 15 GM TUBE TOPICAL SCH (08:27)
[2017-12-01] MEDS ORDERED: ZIPR40 PO (11:24)
[2017-12-01] MEDS ORDERED: ARIP1TAB13 PO (11:24)
--- NOTE | 2017-12-01 11:30 | HHI.DS ---
Psychiatry Discharge Summary Inpatient Psychiatric care?: Yes Advance Directive: Yes Mental Health AdvanceDirective: No Health Care Proxy: No Admission Admission Date November 21, 2017 at 21:25 Admission Diagnosis: (1) Paranoid type schizophrenia, chronic state ICD Code: F20.0 - Paranoid schizophrenia (2) Marijuana abuse ICD Code: F12.10 - Cannabis abuse, uncomplicated Brief History Patient is a 27-year-old white male that document reviewed essentially is stating Mr. Roper was running back and forth across the [facility]. Mr. Roper is in extensive mental illness history. Mr. Roper cannot give us an answer for his actions. It appears patient was naked while doing the above behaviors. He was noted to have abrasions on the dorsum of his feet his knees and his abdomen. Was seen and screened in the ED with urine toxicology was negative. Of interest the patient seen and screened here also on 10/21/2017 with visit [id number] at that time urine toxicology positive for marijuana. Patient was screened by our psychiatric nurse practitioner and released to his family. At that time he is also noted to be running naked in the community. At the present time patient sitting quietly in his room on [address] nurse [address]ie and counselor jenna present throughout session patient is alert oriented tall heavy set white male with thick curly brown hair. He gives a somewhat convoluted confusing history of living with his mother and mother's boyfriend it appears somewhat conflictual in nature with the boyfriend. There is somewhat of a spiritual focus to his delusions he feels that the boyfriend may be a Satanist is able to insert thoughts and words into his head that are upsetting and depressing to him. He also implies some may be other voices of the people able to insert thoughts into his head with attempts to control him. He said he was naked on the bridge they get closer to [facility]. Of interest he also stated he has had a history of hospitalization and [facility] act for similar behaviors has been seen by the outpatient clinician will he feels they may be Satanists also. He states he has been on Abilify that helps him, and on Abilify Maintena injection states she is due for it above the 19th of this month. We will I am uncertain about his prior compliance with medications. He acknowledges some vague misuse of multiple other drugs in the past including cocaine mushrooms hallucinogenic's and alcohol he states he has a GED and a few college credits. He denies being denies any significant relationships or social contacts. He states he is heterosexual but has never been sexually active. He is vague about any prior physical and/or sexual abuse. He is vague about any past family history of mental illness or addictions. He does state he has a brother and a sister both of whom live local. He has questions about them also being Satanists. At the present time patient does meet criteria for involuntary psychiatric hospitalization under the Mendoza act I will do first opinion request second opinion. They feel he does have capacity signed for medication we will start him on Abilify 5 mg p.o. twice daily. We will offer him Abilify Maintena 400 mg IM and the next 1-2 days. We will attempt to reach patient's family to get further information. Probable return to the family home. Perhaps into a sober living type facility, with follow-up packet Fidencio Leong The patient is a 27 year-old man, domiciled in [place] with his mother, unemployed, single, with psychiatric history of schizophrenia, multiple psychiatric hospitalizations, he denies previous suicidal attempts, outpatient psychiatric care in [facility], he is in Abilify 5 mg, cannabis use disorder, no significant medical history, who was brought to the hospital on the Mendoza act because the patient was running across the [facility] back in [facility]. Patient was consulted to me for second opinion. On psychiatric evaluation the patient is found exercising in his room. He has not odd affect, but he is calm and cooperative. The patient states that he was brought here because he is stated to the police that he believes in Brennan. He says that he has been hearing voices "telling me different things". But, at this moment he denies suicidal enemas ideation, he denies visual and auditory hallucinations. He says that he has Brennan in his heart and he is a very episcopalian person. Patient reports that he has been taking his medication, and he does not have any objection in taking Abilify maintenna. Patient is fully oriented 3, no attention deficit, no fluctuation of consciousness. He has been compliant medications, no significant side effects. Tobacco Use In Past 30 Days: 4 or Less Cigarettes/Day Alcohol Use: 2-3 Times Per Week Hospital Course Patient's hospital course was uneventful, patient showed compliance with medication with no behavioral problems starting with admission. Patient's auditory hallucinations and vigilance paranoia some isolation continued initially event with the adjustment of the Abilify. However once we determined the need for adjunctive medication, the addition of Geodon showed patient with improvement. Patient seen today he now denies suicidality he denies voices or visions. States he feels comfortable with the medications. Is willing to be compliant with medications. This month follow-up services. Thus patient will be discharged today to himself, with Rx 1 month, follow-up [facility] outpatient medication management and counseling. Also recommended abstinence from drugs including marijuana Results Blood Pressure 123 / 84 Vital Signs Date Time Temp Pulse Resp B/P (MAP) Pulse Ox O2 Delivery O2 Flow Rate FiO2 11/30/17 17:47 97.6 75 18 123/84 (97) 98 Laboratory Results Test 11/22/17 10:15 Cholesterol Level 130 MG/DL (120-200) HDL Cholesterol 35.6 MG/DL (40.0-60.0) Hemoglobin A1c 5.0 % (4.3-6.0) LDL Cholesterol 78 MG/DL (0-99) Triglycerides Level 81 MG/DL (42-150) Summary of Procedures None done Pending results at discharge: No Medications # of Antipsychotic meds at D/C: 2 Appropriate >1 Antipsych meds?: 2 (Would recommend community clinician consider taper of the Abilify with adjustment of the Geodon) Approp Antipsych med options 1 - Minimum of three failed multiple trials of monotherapy. 2 - Documented plan to taper to monotherapy due to previous use of multiple meds OR cross-taper in progress at D/C. 3 - Documentation of augmentation of Clozapine. 4 - Justification other than those listed in allowable values 1-3, document here : Discharge Discharge Date: December 01, 2017 Discharge Diagnosis: (1) Paranoid type schizophrenia, chronic state Diagnosis: Principal ICD Code: F20.0 - Paranoid schizophrenia Pt Condition on Discharge: Stable Discharge Disposition: Discharge Home Discharge Instructions Diet Instructions: As Tolerated, No Restrictions Activities you can perform: Regular-No Restrictions Scheduled Appointment: [facility] Discharge Time > 30 minutes Mental Status Examination Appearance: Appropriate Consciousness: Alert Orientation: x4 Motor Activity: Normal gait Speech: Unremarkable, Pressured (Slightly), Rapid (Slightly) Language: Adequate Fund of Knowledge: Adequate Attention and Concentration: Adequate Memory: Unremarkable Mood: Other (Euthymic to mildly dysphoric) Affect: Other (Slight increased range and intensity) Thought Process & Associations: Circumstantial Hallucination Type: None Delusion Type: None Suicidal Ideation: No Suicidal Plan: No Suicidal Intention: No Homicidal Ideation: No Homicidal Plan: No Homicidal Intention: No Insight: Poor Judgment: Poor Discharge/Advance Care Plan Health Problems: (1) Paranoid type schizophrenia, chronic state (2) History of multiple drug abuse (3) Marijuana abuse Goals to promote your health * To prevent worsening of your condition and complications * To maintain your health at the optimal level Directions to meet your goals Take your medications as prescribed Follow your dietary instruction Follow activity as directed Keep your appointments as scheduled Take your immunizations and boosters as scheduled If your symptoms worsen call your PCP, if no PCP go to Urgent Care Center or Emergency Room For 06/02 questions related to your inpatient stay or results of tests pending at discharge, please contact Dr. Sukhjinder Stern at Smoking is Dangerous to Your Health. Avoid second hand smoking Sukhjinder Stern MD December 01, 2017 11:30
== END 2017-12-01 12:25 | disposition home or self-care (01) | DRG 885 ==
LOC: NEPD 19:02 → NEDA 21:25 → H260 23:03
PROVIDERS: ADMIT Psychiatry & Neurology Psychiatry; ATTEND Psychiatry & Neurology Psychiatry
DX: F20.0 Paranoid schizophrenia (principal); R45.851 Suicidal ideations; F12.10 Cannabis abuse, uncomplicated; S30.811A Abrasion of abdominal wall, initial encounter; S90.812A Abrasion, left foot, initial encounter; S90.811A Abrasion, right foot, initial encounter; S80.212A Abrasion, left knee, initial encounter; F17.210 Nicotine dependence, cigarettes, uncomplicated; S80.211A Abrasion, right knee, initial encounter
CPT/HCPCS: 80048; 80053; 80061; 80307; 83036; 84443; 85025; 90471; 90715; 96360; J7030